=== PATIENT | male | born 1950 | race Caucasian/White ===

== ENCOUNTER 2018-12-21 16:44 | Inpatient (IN) | payer MEDICARE ==
[~2018-12-21] VITALS: Ht 177.8 cm; Wt 72.6 kg
[~2018-12-21 16:44] MED LIST: AMLO5TAB4 PO
[2018-12-21] MEDS ORDERED: SODIUM CHLORIDE 0.9% 1,000 ML IV ONE (20:15)
[2018-12-21] MEDS ORDERED: METHYLPREDNISOLONE SOD SUCC 125 MG/2 ML VIAL IV STA (20:15)
[2018-12-21] MEDS ORDERED: ALBUTEROL (0.083%) 2.5MG/3ML NEB HHN STA (20:15)
[2018-12-21 21:27] LABS: BASOPHILS % 0.3 % (0.0-2.0); HEMATOCRIT. 51.3 % (42.0-52.0); HEMOGLOBIN. 17.5 g/dL (14.0-18.0); MEAN CORPUSCULAR HEMOGLOBIN 31.1 pg (28.0-32.0); MEAN CORPUSCULAR VOLUME 91.1 fL (80.0-94.0); MEAN PLATELET VOLUME 7.9 fl (7.4-10.4); MONOCYTES % 6.8 % (2.0-8.0); NEUTROPHILS % 78.9 % (40.0-76.0); PLATELET 296 x1000/uL (130-400); RED BLOOD CELL COUNT 5.63 mill/uL (4.7-6.1); RED CELL DISTRIBUTION WIDTH 15.5 % (11.6-14.6)
[2018-12-21 21:28] LABS: CHLORIDE 104 mEq/L (98-107)
[2018-12-22] MEDS ORDERED: SODIUM CHLORIDE 0.9% 1,000 ML IV SCH (02:28)
[2018-12-22] MEDS ORDERED: ACETAMINOPHEN 325MG TABLET PO ONE (02:45)
[2018-12-22] MEDS ORDERED: CLONIDINE 0.1MG TABLET PO PRN ×2 (07:15→09:30)
[2018-12-22] MEDS ORDERED: AMLODIPINE 10MG TABLET PO ONE (07:15)
[2018-12-22 09:00] VITALS: BP 163/94
[2018-12-22] MEDS: AMLODIPINE 10MG TABLET PO SCH (09:30)
[2018-12-22] MEDS ORDERED: ACETAMINOPHEN 325MG TABLET PO PRN (09:30)
[2018-12-22] MEDS: HYDROCODONE/ACETAMINOPHEN 10/325MG TABLET PO PRN ×2 (10:10→20:31)
[2018-12-22] MEDS: PREDNISONE 10MG TABLET PO SCH (11:26)
[2018-12-22] MEDS: ENOXAPARIN 40MG/0.4ML SYR SUBCUT SCH (11:28)
[2018-12-22] MEDS: ONDANSETRON HCL 4MG/2ML INJ IV PRN ×2 (11:28→11:40)
[2018-12-22] MEDS: IPRATROPIUM/ALBUTEROL 0.5-3(2.5)MG/3ML NEB INH SCH ×2 (14:05→20:26)
[2018-12-22 16:40] LABS: CLARITY URINE CLEAR (CLEAR); COLOR URINE YELLOW (YELLOW); KETONES URINE NEGATIVE (NEGATIVE); LEUKOCYTE ESTERASE URINE NEGATIVE (NEGATIVE); NITRITE URINE NEGATIVE (NEGATIVE); OCCULT BLOOD URINE NEGATIVE (NEGATIVE); PROTEIN URINE 1+ (NEGATIVE); SPECIFIC GRAVITY URINE 1.014 (1.005-1.030); UROBILINOGEN URINE 0.2 E.U./dL (0.2-1.0)
[2018-12-22] MEDS ORDERED: IOHEXOL-350 100 ML BOTTLE ONE (17:54)
[2018-12-22 20:00] VITALS: BP 143/78
[2018-12-23] VITALS: BP 167/75
[2018-12-23] MEDS: IPRATROPIUM/ALBUTEROL 0.5-3(2.5)MG/3ML NEB INH SCH ×3 (01:19→20:34)
[2018-12-23] MEDS: HYDROCODONE/ACETAMINOPHEN 10/325MG TABLET PO PRN ×3 (01:41→20:48)
[2018-12-23 04:00] VITALS: BP 155/75
[2018-12-23 06:29] LABS: BASOPHILS % 0.6 % (0.0-2.0); EOSINOPHILS % 0.3 % (0.0-5.0); HEMATOCRIT. 51.4 % (42.0-52.0); HEMOGLOBIN. 17.6 g/dL (14.0-18.0); LYMPHOCYTES % 16.3 % (20.0-50.0); MEAN CORPUSCULAR VOLUME 90.5 fL (80.0-94.0); MEAN PLATELET VOLUME 7.7 fl (7.4-10.4); NEUTROPHILS % 71.8 % (40.0-76.0); PLATELET 285 x1000/uL (130-400); RED BLOOD CELL COUNT 5.68 mill/uL (4.7-6.1); RED CELL DISTRIBUTION WIDTH 15.6 % (11.6-14.6)
[2018-12-23 06:46] LABS: CHLORIDE 100 mEq/L (98-107)
[2018-12-23 06:58] LABS: LDL CHOLESTEROL 122 mg/dL (5-100); PHOSPHORUS 3.9 mg/dL (2.5-4.9)
[2018-12-23 07:01] LABS: HDL CHOLESTEROL 95 mg/dL (40-59)
[2018-12-23 08:00] VITALS: BP 144/83
[2018-12-23] MEDS: ENOXAPARIN 40MG/0.4ML SYR SUBCUT SCH (08:37)
[2018-12-23] MEDS: AMLODIPINE 10MG TABLET PO SCH (08:37)
[2018-12-23] MEDS: PREDNISONE 10MG TABLET PO SCH (08:37)
[2018-12-23 12:00] VITALS: BP 140/70
[2018-12-23] MEDS: DOCUSATE SODIUM 100MG CAPSULE PO PRN (12:57)
[2018-12-23 16:00] VITALS: BP 137/84
[2018-12-23 20:00] VITALS: BP 142/78
[2018-12-23] MEDS: ATORVASTATIN CALCIUM 20MG TABLET PO SCH (20:39)
[2018-12-24] VITALS (8 sets, daily range): BP systolic 117–154; BP diastolic 35–88
[2018-12-24] MEDS: IPRATROPIUM/ALBUTEROL 0.5-3(2.5)MG/3ML NEB INH SCH ×4 (01:57→20:55)
[2018-12-24] MEDS: HYDROCODONE/ACETAMINOPHEN 10/325MG TABLET PO PRN ×4 (02:41→21:09)
[2018-12-24 07:10] LABS: CHLORIDE 103 mEq/L (98-107)
[2018-12-24 07:29] LABS: BASOPHILS % 0.3 % (0.0-2.0); EOSINOPHILS % 1.7 % (0.0-5.0); HEMATOCRIT. 47.7 % (42.0-52.0); HEMOGLOBIN. 16.4 g/dL (14.0-18.0); LYMPHOCYTES % 26.7 % (20.0-50.0); MEAN CORPUSCULAR HEMOGLOBIN 30.9 pg (28.0-32.0); MEAN CORPUSCULAR VOLUME 90.1 fL (80.0-94.0); MEAN PLATELET VOLUME 7.8 fl (7.4-10.4); MONOCYTES % 12.6 % (2.0-8.0); NEUTROPHILS % 58.7 % (40.0-76.0); PLATELET 267 x1000/uL (130-400); RED BLOOD CELL COUNT 5.29 mill/uL (4.7-6.1); RED CELL DISTRIBUTION WIDTH 14.8 % (11.6-14.6)
[2018-12-24] MEDS: PREDNISONE 10MG TABLET PO SCH (08:30)
[2018-12-24] MEDS: AMLODIPINE 10MG TABLET PO SCH (08:30)
[2018-12-24] MEDS: ENOXAPARIN 40MG/0.4ML SYR SUBCUT SCH (08:31)
[2018-12-24] MEDS: DOCUSATE SODIUM 100MG CAPSULE PO PRN (16:39)
[2018-12-24] MEDS: ATORVASTATIN CALCIUM 20MG TABLET PO SCH (21:09)
== END 2018-12-24 21:30 | DRG 191 ==
LOC: ER 17:34 → 6WST 22:37 → ENRESERV 12-22 08:00
PROVIDERS: ADMIT Internal Medicine Nephrology; ATTEND Internal Medicine Nephrology
DX: J44.1 Chronic obstructive pulmonary disease with (acute) exacerbation (principal); J98.11 Atelectasis; R06.03 Acute respiratory distress; Z59.0 Homelessness; I10 Essential (primary) hypertension; D72.829 Elevated white blood cell count, unspecified; T38.0X5A Adverse effect of glucocorticoids and synthetic analogues, initial encounter; Y92.89 Other specified places as the place of occurrence of the external cause
CPT/HCPCS: 36415; 71045; 71275; 80048; 80061; 83735; 84100; 84484; 93005; 93306; 93970; 94640; 96361; 96374; 97161; 97165; 99285; J1650; J2405; J2930; J7030; J7512; J7611; J7620; Q9967